=== PATIENT | female | born 1965 | race Caucasian/White ===

== ENCOUNTER 2020-03-28 09:44 | Emergency (ER) | payer OTHER ==
[2020-03-28 09:55] VITALS: BP 132/70; PULSE 100; TEMP 98.5; BMI 36.3
--- NOTE | 2020-03-28 10:17 | PDOC ---
History of Present Illness - General Chief Complaint: Back Pain Stated Complaint: BACK PAIN Time Seen by Provider: 03/28/20 09:58 History Source: Patient Exam Limitations: Clinical Condition - History of Present Illness Initial Comments: 03/28/20 10:13 Patient with past medical history of arthritis presented with complaint of right lower back pain which has been persistent for 3 days. Patient reported increased pain to right side lower back with rotation of the waist. Denies trauma or injury to back. Denies radiculopathy. Denies urinary frequency, dysuria or burning with urination. Denies any other symptoms Is this a multiple visit Asthma Patient?: No Timing/Duration: other (3 days) Past History - Medical History Allergies/Adverse Reactions: Allergies Allergy/AdvReac Type Severity Reaction Status Date / Time aspirin Allergy Verified 03/28/20 09:52 Home Medications: Ambulatory Orders Methylprednisolone [Medrol Dose Jason] 4 mg PO ASDIR #21 tablet 03/28/20 Asthma: Yes COPD: No GI Disorders: Yes HTN: Yes Hypercholesterolemia: Yes - Reproductive History Is Patient Now?: No - Immunization History Immunization Up to Date: Yes - Psycho-Social/Smoking History Smoking History: Never smoked - Substance Abuse Hx (Audit-C & DAST Scrn) How often the patient has a drink containing alcohol: Never Score: In Men: 4 or > Positive; In Women: 3 or > Positive: 0 Screen Result (Pos requires Nsg. Audit-10AR): Negative In the last yr the pt used illegal drug/Rx for NonMed reason: No Score: Yes response is considered Positive: 0 Screen Result (Positive result requires Nsg. DAST-10): Negative Review of Systems - Review of Systems Able to Perform ROS?: Yes Is the patient limited Thai proficient: No Constitutional: No: Chills, Fever, Malaise HEENTM: No: Symptoms Reported, See HPI, Eye Pain, Blurred Vision, Tearing, Recent change in vision, Double Vision, Cataracts, Ear Pain, Ocular Prothesis, Ear Discharge, Nose Pain, Nose Congestion, Tinnitus, Nose Bleeding, Hearing Loss, Throat Pain, Throat Swelling, Mouth Pain, Dental Problems, Difficulty Swallowing, Mouth Swelling, Other Respiratory: No: Symptoms reported, See HPI, Cough, Orthopnea, Shortness of Breath, SOB with Exertion, SOB at Rest, Stridor, Wheezing, Productive cough, Hemoptysis, Other Cardiac (ROS): No: Symptoms Reported, See HPI, Chest Pain, Edema, Irregular Heart Rate, Lightheadedness, Palpitations, Syncope, Chest Tightness, Other ABD/GI: No: Symptoms Reported, Nausea, Vomiting Musculoskeletal: Yes: Symptoms Reported, See HPI, Back Pain (right back pain) Integumentary: No: Symptoms Reported Neurological: No: Symptoms reported All Other Systems: Reviewed and Negative *Physical Exam - Vital Signs Last Vital Signs Temp Pulse Resp BP Pulse Ox 98.5 F 100 H 20 132/70 100 03/28/20 09:52 03/28/20 09:52 03/28/20 09:52 03/28/20 09:52 03/28/20 09:52 - Physical Exam 03/28/20 10:18 GENERAL: Well developed, well nourished. Awake and alert. No acute distress. PULMONARY: No evidence of respiratory distress. MUSCULOSKELETAL : mild tenderness over posterior paravertebral muscle of lumbar spine of L1-L3 on the right side. No midline tenderness. No bony deformities. Negative CVA tenderness SKIN: Warm and dry. Normal capillary refill. No rashes. No jaundice. NEUROLOGICAL: Alert, awake, appropriate. No motor deficits in the lower extremities. Gait is normal without ataxia. PSYCHIATRIC: Cooperative. Good eye contact. Appropriate mood and affect. General Appearance: Yes: Nourished, Appropriately Dressed. No: Apparent Distress ED Treatment Course - RADIOLOGY Radiology Studies Ordered: Category Date Time Status SPINE-LUMBAR ONLY [RAD] Stat Radiology 03/28/20 10:03 Ordered Medical Decision Making - Medical Decision Making 03/28/20 10:15 Patient with past medical history of arthritis presented with complaint of right lower back pain which has been persistent for 3 days. Patient reported increased pain to right side lower back with rotation of the waist. Denies trauma or injury to back. Denies radiculopathy. Denies saddle paresthesia, urinary or fecal incontinence. Denies urinary frequency, dysuria or burning with urination. Denies any other symptoms Exam significant for mild subjective tenderness to right paravertebral muscle of lumbar spine of L2-L4 on the right side. No midline tenderness. No radiculopathy. No CVA tenderness. Patient symptoms likely back strain versus less likely cystitis. UA and urine culture ordered to rule out cystitis. X-ray lumbar spine ordered to rule out acute spine abnormality. Treat based on lab and imaging results 03/28/20 11:11 UA shows no acute abnormality. X-ray of lumbar spine shows no acute pathology. Patient symptoms likely musculoskeletal back strain. Toradol 30 mg IM given for pain. Patient stable for discharge on Medrol pack for inflammatory effect and advised to continue home muscle relaxer which patient was taking for leg pain with neurosurgery follow-up as needed Discharge - Discharge Information Problems reviewed: Yes Clinical Impression/Diagnosis: Lumbago without sciatica Qualifiers: Chronicity: acute Back pain laterality: right Qualified Code(s): M54.5 - Low back pain Condition: Stable Disposition: HOME - Admission No - Additional Discharge Information Prescriptions: Methylprednisolone [Medrol Dose Jason] 4 mg PO ASDIR #21 tablet - Follow up/Referral Referrals: Darius Hunter MD, [facility] [Staff Physician] - - Patient Discharge Instructions Patient Printed Discharge Instructions: DI for Low Back Pain Additional Instructions: Your urine lab was normal. Your pain is likely from muscle pain. Take prescribed medication as prescribed for pain. Continue with home muscle relaxer as needed. Apply heat to lower back as needed for pain. Follow-up with referred orthopedic field marketing specialist if symptoms persist - Post Discharge Activity
[2020-03-28] MEDS ORDERED: KETOROLAC TROMETHAMINE 30 MG/1 ML VIAL IM ONE (10:41)
[2020-03-28] MEDS ORDERED: KETOROLAC TROMETHAMINE 30 MG/1 ML VIAL ONE (10:43)
[2020-03-28 10:49] LABS: URINE APPEARANCE CLEAR; URINE BILIRUBIN NEGATIVE (NEGATIVE); URINE COLOR YELLOW; URINE GLUCOSE (UA) NEGATIVE (NEGATIVE); URINE KETONE TRACE (NEGATIVE); URINE LEUK ESTERASE NEGATIVE (NEGATIVE); URINE NITRITE NEGATIVE (NEGATIVE); URINE PROTEIN NEGATIVE (NEGATIVE)
== END 2020-03-28 11:11 | disposition home or self-care (01) ==
LOC: JERFT 09:44
PROC: 3E0233Z Introduction of Anti-inflammatory into Muscle, Percutaneous Approach (ICD-10-PCS; principal; 2020-03-28)
DX: M54.5 Low back pain (principal)
CPT/HCPCS: 72100-TC-FY; 81003; 87086; 87186; 99284-25